=== PATIENT | female | born 1995 | race Caucasian/White ===

== ENCOUNTER 2022-01-28 15:20 | Emergency (ER) | payer OTHER ==
[~2022-01-28] VITALS: Ht 172.7 cm; Wt 113.6 kg
[2022-01-28 15:26] VITALS: BP 109/67
[2022-01-28] MEDS ORDERED: NEOMYCIN/POLYMYXIN B/HYDROCORT 10 ML OTIC SUSPENSION AD ONE (16:15)
[2022-01-28] MEDS ORDERED: IBUPROFEN 600 MG TABLET PO ONE (16:15)
== END 2022-01-28 16:40 | disposition home or self-care (01) ==
LOC: EMS 15:23
DX: H60.91 Unspecified otitis externa, right ear (principal); R51.9 Headache, unspecified
CPT/HCPCS: 99283

== ENCOUNTER 2022-07-08 17:22 | Emergency (ER) | payer OTHER ==
[~2022-07-08] VITALS: Ht 167.6 cm; Wt 109.1 kg
[2022-07-08 21:00] VITALS: BP 125/77
== END 2022-07-08 21:04 | disposition home or self-care (01) ==
LOC: EMS 17:22
DX: S46.912A Strain of unspecified muscle, fascia and tendon at shoulder and upper arm level, left arm, initial encounter (principal); W19.XXXA Unspecified fall, initial encounter; Y93.89 Activity, other specified; Y92.89 Other specified places as the place of occurrence of the external cause; Y99.8 Other external cause status
CPT/HCPCS: 71045; 99284